=== PATIENT | female | born 1960 | race Caucasian/White ===

== ENCOUNTER 2018-03-18 21:41 | Inpatient (IN) | payer MEDICAID ==
[~2018-03-18] VITALS: Ht 167.6 cm; Wt 40.0 kg
--- NOTE | ~2018-03-18 | MORECARE ---
CASE MANAGEMENT DISCHARGE SUMMARY PATIENT: ZARINA VELAZQUEZ UNIT: [id number] ADM DATE: 03/19/18 AGE: 57 : 60 SEX: F ROOM/BED: D.6995 AUTHOR: JILLIANDOC PHYSICIAN: REFERRING PHYSICIAN: RULA SALAS MD DATE OF SERVICE: 03/24/18 Discharge Plan Patient Name: ZARINA VELAZQUEZ Facility: [facility]:[place] : 1960 Planned Disposition: Home Anticipated Discharge Date: 03/24/18 Discharge Date: 03/24/2018 Expected LOS: 5 Initial Reviewer: [email or web address] Initial Review Date: 03/24/2018 Generated: 03/24/18 6:06 pm Comments DCP- Discharge Planning Updated by [email or web address]: Malcolm Dominguez on 03/24/18 4:[address] Patient Name: ZARINA VELAZQUEZ Admission Status: ER Accout number: [id number] Admission Date: 03-19-2018 : 1960 Admission Diagnosis:SHORTNESS OF BREATH Attending: RULA SALAS Current LOS: 5 Anticipated DC Date: 03-24-2018 Planned Disposition: Home Primary Insurance: MEDICAID [place] PENDING Discharge Planning Comments: CM MET WITH PT IN ROOM TO DISCUSS DISCHARGE PLANNING AND NEEDS. PT REPORTS LIVING AT HOME INDEPENDENTLY WITH HER BOYFRIEND, ADULT SON AND DAUGHTER IN [place]. PT HAS A CANE SHE DOES NOT USE WITH NO MEDICAL EQUIPMENT PROVIDER PREFERENCE. PT HAS NO OUTSIDE SERVICES ASSISTING IN THE HOME. CM DISCUSSED AVAILABILITY OF HOME HEALTH, REHAB SERVICES AND MEDICAL EQUIPMENT. PT DENIES DISCHARGE NEEDS, REPORTS HER BOYFRIEND WILL PICK HER UP FOR DISCHARGE HOME TODAY. PT ASKED ABOUT HER MEDICAID, CM CALLED AND SPOKE TO STAR IN [employer] WHO INFORMED CM THAT IT MAY BE ANOTHER WEEK OR SO BEFORE ANY DETERMINATION IS MADE BY DEPARTMENT OF HUMAN SERVICES. CM NOTIFIED PT WHO REPORTS HAVING DOUGS CARD AND WILL CALL NEXT WEEK. PT REPORTS SHE WILL BE ELIGIBLE FOR INSURANCE IN ABOUT 30 DAYS AT HER NEW EMPLOYER, [employer], WHERE PT IS EMPLOYED A [employer] EXEC[employer]IVE. PT HAS DISCOUNT CARD FOR PRESCRIPTIONS AT [facility] AND CM REFERRED TO [facility] FOR POSSIBLE ASSISTANCE IF NEEDED FOR OBTAINING FUNDS FOR PRESCRIPTIONS WELL LISTING OF OTHER COMMUNITY RESOURCES THAT MAY ASSIST IF PT NEEDS IT. PT REPORTS SHE WILL BE ABLE TO GET HER ANTIBIOTICS AND IF UNABLE TO OBTAIN FUNDS FOR OTHER MEDICATIONS, WILL SEEK ASSISTANCE AT [facility]. PT DENIES NEEDS. IT SYSTEMS ENGINEER NURSE NOTIFIED. Die Sinker: Malcolm Dominguez Die Sinker: Malcolm Dominguez DCPIA - Discharge Planning Initial Assessment Updated by [id number]: Malcolm Dominguez on 03/24/18 5:02 pm * Is the patient Alert and Oriented? Yes * How many steps to enter\exit or inside your home? 14-0 / 0-I * PCP NONE * [facility] * Preadmission Environment Home with Family * ADLs Independent * Equipment Cane * Other Equipment NO MEDICAL EQUIPMENT PROVIDER PREFERENCE * List name and contact numbers for known caregivers / representatives who currently or will assist patient after discharge: WAGNER BANKS, BOYFRIEND, * Verbal permission to speak to the caregivers and representatives has been obtained from the patient. N/A * Community resources currently utilized None * Please name any agencies selected above. NONE * Additional services required to return to the preadmission environment? No * Can the patient safely return to the preadmission environment? Yes * Has this patient been hospitalized within the prior 30 days at any hospital? No Patient Name: ZARINA VELAZQUEZ Page [id number] at 1706 All edits/amendments must be made on the electronic document DICTATION DATE: 03/24/181705 ROLL WINDER: ROMEL 03/24/181705 RPT#: [id number] DC DATE:03/24/18 STATUS: DIS IN [facility] [address] [place] [address] END OF REPORT
[2018-03-18] MEDS ORDERED: VENTOLIN HFA18 GM INH (23:02)
[2018-03-18 23:49] LABS: HEMOGLOBIN 13.5 g/dL (12-16); MCH 31.8 pg (26.0-34.0); MCHC 33.8 g/dL (31.0-37.0); MCV 94.3 fL (80.0-100.0); MEAN PLATELET VOLUME 9.4 fL (7.4-10.4); PLATELET COUNT 418 10x3/uL (130-400); RBC 4.24 10x6/uL (4.00-5.40); RDW 13.5 % (11.5-14.5); WBC 26.3 10x3/uL (4.8-10.8)
[2018-03-19 00:02] LABS: EOSINOPHILS 1 % (0-7); LYMPHOCYTES 3 % (15-50); MONOCYTES 1 % (2-11); NEUTROPHILS 92 % (40-80); PLATELET ESTIMATE INCREASED
[2018-03-19 00:04] LABS: ALKALINE PHOSPHATASE 74 U/L (46-116); ALT (SGPT) 13 U/L (10-68); BILIRUBIN - TOTAL 0.28 mg/dL (0.2-1.3); CALC OSMOLALITY 272 mosm/kg (275-300); CALCIUM 8.6 mg/dL (8.5-10.1); CARBON DIOXIDE 22.1 mmol/L (21.0-32.0); CHLORIDE - SERUM 100 mmol/L (98-107); CREATININE - SERUM 0.8 mg/dL (0.6-1.3); GLUCOSE 135 mg/dL (74-106); POTASSIUM - SERUM 3.5 mmol/L (3.5-5.1); SODIUM 135 mmol/L (136-145); UREA NITROGEN 15 mg/dL (7-18); eGFR NON AFRICAN AMERICAN 78 mL/min (90-120)
[2018-03-19 03:26] VITALS: BMI 21.8
[2018-03-19 04:00] VITALS: BP 104/63
[2018-03-19 09:00] VITALS: BP 108/65
[2018-03-19 13:29] VITALS: BP 121/70
[2018-03-19 14:05] VITALS: Ht 167.6 cm; Wt 40.0 kg
[2018-03-19 14:05] LABS: APPEARANCE CLEAR (CLEAR); COLOR YELLOW (YELLOW); NITRITE NEGATIVE (NEGATIVE); PROTEIN NEGATIVE (NEGATIVE)
[2018-03-19 14:06] LABS: BACTERIA NONE SEEN /hpf (NONE SEEN); BILIRUBIN NEGATIVE (NEGATIVE); EPITHELIAL CELLS NSEEN /hpf (0-5); GLUCOSE 1000 mg/dL (NEGATIVE); KETONE NEGATIVE (NEGATIVE); RED CELLS - URINE NONE SEEN /hpf (0-5); UROBILINOGEN NORMAL (NORMAL); WHITE CELLS - URINE NSEEN /hpf (0-5)
[2018-03-19 16:06] VITALS: BP 120/71
[2018-03-19 20:00] VITALS: BP 111/67
[2018-03-20 00:10] VITALS: BP 135/79
[2018-03-20 04:00] VITALS: BP 104/63
[2018-03-20 06:24] LABS: CALC OSMOLALITY 281 mosm/kg (275-300); CALCIUM 8.1 mg/dL (8.5-10.1); CARBON DIOXIDE 25.8 mmol/L (21.0-32.0); CHLORIDE - SERUM 106 mmol/L (98-107); CREATININE - SERUM 0.6 mg/dL (0.6-1.3); GLUCOSE 104 mg/dL (74-106); POTASSIUM - SERUM 3.2 mmol/L (3.5-5.1); SODIUM 142 mmol/L (136-145); eGFR NON AFRICAN AMERICAN > 90 mL/min (90-120)
[2018-03-20 06:26] LABS: BASOPHILS 0.1 % (0-2); EOSINOPHILS 0.2 % (0-7); HEMATOCRIT 32.8 % (36.0-48.0); HEMOGLOBIN 10.8 g/dL (12-16); IMMATURE GRANULOCYTES 0.4 % (0-5); LYMPHOCYTES 11.5 % (15-50); MCH 31.7 pg (26.0-34.0); MCHC 32.9 g/dL (31.0-37.0); MCV 96.2 fL (80.0-100.0); MEAN PLATELET VOLUME 9.4 fL (7.4-10.4); MONOCYTES 4.1 % (2-11); NEUTROPHILS 83.7 % (40-80); PLATELET COUNT 424 10x3/uL (130-400); RBC 3.41 10x6/uL (4.00-5.40); RDW 13.8 % (11.5-14.5); WBC 23.7 10x3/uL (4.8-10.8)
[2018-03-20 06:35] LABS: UREA NITROGEN 10 mg/dL (7-18)
[2018-03-20 08:53] VITALS: BP 115/64
[2018-03-20 12:10] VITALS: BP 128/77
[2018-03-20 15:38] VITALS: BP 110/68
[2018-03-20 20:00] VITALS: BP 132/78
[2018-03-21 00:06] VITALS: BP 144/99
[2018-03-21 04:00] VITALS: BP 147/50
[2018-03-21 06:54] LABS: BASOPHILS 0 % (0-2); EOSINOPHILS 0 % (0-7); HEMATOCRIT 35.5 % (36.0-48.0); HEMOGLOBIN 11.8 g/dL (12-16); IMMATURE GRANULOCYTES 0.7 % (0-5); MCH 31.6 pg (26.0-34.0); MCHC 33.2 g/dL (31.0-37.0); MCV 94.9 fL (80.0-100.0); MEAN PLATELET VOLUME 9.9 fL (7.4-10.4); NEUTROPHILS 90.3 % (40-80); PLATELET COUNT 478 10x3/uL (130-400); RBC 3.74 10x6/uL (4.00-5.40); RDW 13.8 % (11.5-14.5)
[2018-03-21 06:56] LABS: WBC 13.7 10x3/uL (4.8-10.8)
[2018-03-21 07:01] LABS: % SATURATION 22 % (15-55); IRON 53 ug/dl (35-150); TOTAL IRON BIND CAPACITY 231 ug/dl (260-445); UNSAT IRON BIND CAPACITY 178 ug/dl (150-375)
[2018-03-21 07:21] LABS: CALC OSMOLALITY 282 mosm/kg (275-300); CALCIUM 8.6 mg/dL (8.5-10.1); CARBON DIOXIDE 25.9 mmol/L (21.0-32.0); CHLORIDE - SERUM 103 mmol/L (98-107); CREATININE - SERUM 0.5 mg/dL (0.6-1.3); FERRITIN 190 ng/mL (3-244); GLUCOSE 150 mg/dL (74-106); MAGNESIUM - SERUM 2.1 mg/dL (1.8-2.4); PHOSPHOROUS 3.5 mg/dL (2.5-4.9); POTASSIUM - SERUM 4.1 mmol/L (3.5-5.1); SODIUM 141 mmol/L (136-145); UREA NITROGEN 11 mg/dL (7-18); eGFR NON AFRICAN AMERICAN > 90 mL/min (90-120)
[2018-03-21 07:59] VITALS: BP 147/87
[2018-03-21 12:10] VITALS: BP 151/91
[2018-03-21 16:16] VITALS: BP 129/77
[2018-03-21 20:30] VITALS: BP 138/83
[2018-03-22 00:30] VITALS: BP 159/94
[2018-03-22 04:30] VITALS: BP 151/95
[2018-03-22 05:03] LABS: BASOPHILS 0.1 % (0-2); EOSINOPHILS 0 % (0-7); HEMATOCRIT 37.8 % (36.0-48.0); HEMOGLOBIN 12.7 g/dL (12-16); IMMATURE GRANULOCYTES 1.8 % (0-5); LYMPHOCYTES 7.5 % (15-50); MCH 31.8 pg (26.0-34.0); MCHC 33.6 g/dL (31.0-37.0); MCV 94.7 fL (80.0-100.0); MEAN PLATELET VOLUME 9.5 fL (7.4-10.4); MONOCYTES 4.6 % (2-11); PLATELET COUNT 486 10x3/uL (130-400); RBC 3.99 10x6/uL (4.00-5.40); RDW 13.7 % (11.5-14.5); WBC 13.4 10x3/uL (4.8-10.8)
[2018-03-22 05:27] LABS: CALC OSMOLALITY 282 mosm/kg (275-300); CALCIUM 9.3 mg/dL (8.5-10.1); CARBON DIOXIDE 28.6 mmol/L (21.0-32.0); CHLORIDE - SERUM 102 mmol/L (98-107); CREATININE - SERUM 0.5 mg/dL (0.6-1.3); GLUCOSE 141 mg/dL (74-106); POTASSIUM - SERUM 3.8 mmol/L (3.5-5.1); SODIUM 140 mmol/L (136-145); eGFR NON AFRICAN AMERICAN > 90 mL/min (90-120)
[2018-03-22 05:29] LABS: UREA NITROGEN 17 mg/dL (7-18)
[2018-03-22 07:00] VITALS: BP 150/94
[2018-03-22 11:00] VITALS: BP 143/87
[2018-03-22 15:00] VITALS: BP 132/87
[2018-03-22 20:00] VITALS: BP 136/85
[2018-03-23 06:21] LABS: BASOPHILS 0.1 % (0-2); EOSINOPHILS 0 % (0-7); HEMOGLOBIN 12.5 g/dL (12-16); IMMATURE GRANULOCYTES 2.4 % (0-5); MCH 31.3 pg (26.0-34.0); MCHC 32.9 g/dL (31.0-37.0); MCV 95.2 fL (80.0-100.0); MEAN PLATELET VOLUME 9.4 fL (7.4-10.4); MONOCYTES 7.7 % (2-11); NEUTROPHILS 77.8 % (40-80); PLATELET COUNT 477 10x3/uL (130-400); RBC 3.99 10x6/uL (4.00-5.40); RDW 13.7 % (11.5-14.5); WBC 13.1 10x3/uL (4.8-10.8)
[2018-03-23 06:39] LABS: CALC OSMOLALITY 278 mosm/kg (275-300); CALCIUM 8.9 mg/dL (8.5-10.1); CARBON DIOXIDE 30.6 mmol/L (21.0-32.0); CHLORIDE - SERUM 102 mmol/L (98-107); CREATININE - SERUM 0.5 mg/dL (0.6-1.3); GLUCOSE 124 mg/dL (74-106); POTASSIUM - SERUM 4.2 mmol/L (3.5-5.1); SODIUM 138 mmol/L (136-145); UREA NITROGEN 17 mg/dL (7-18); eGFR NON AFRICAN AMERICAN > 90 mL/min (90-120)
[2018-03-23 06:59] VITALS: BP 134/82
[2018-03-23 08:54] VITALS: BP 127/79
[2018-03-23 11:00] VITALS: BP 141/88
[2018-03-23 15:00] VITALS: BP 116/86
[2018-03-23 22:21] VITALS: BP 108/75
[2018-03-24 00:54] VITALS: BP 118/85
[2018-03-24 05:32] VITALS: BP 133/84
[2018-03-24 06:45] LABS: BASOPHILS 0.1 % (0-2); EOSINOPHILS 0 % (0-7); HEMATOCRIT 38.3 % (36.0-48.0); HEMOGLOBIN 12.6 g/dL (12-16); IMMATURE GRANULOCYTES 2.1 % (0-5); MCH 31.3 pg (26.0-34.0); MCHC 32.9 g/dL (31.0-37.0); MEAN PLATELET VOLUME 9.5 fL (7.4-10.4); NEUTROPHILS 79.8 % (40-80); PLATELET COUNT 484 10x3/uL (130-400); RBC 4.03 10x6/uL (4.00-5.40); RDW 13.7 % (11.5-14.5); WBC 14.9 10x3/uL (4.8-10.8)
[2018-03-24 06:52] LABS: CALC OSMOLALITY 279 mosm/kg (275-300); CALCIUM 8.7 mg/dL (8.5-10.1); CARBON DIOXIDE 29.6 mmol/L (21.0-32.0); CHLORIDE - SERUM 100 mmol/L (98-107); CREATININE - SERUM 0.6 mg/dL (0.6-1.3); GLUCOSE 120 mg/dL (74-106); POTASSIUM - SERUM 4.3 mmol/L (3.5-5.1); SODIUM 138 mmol/L (136-145); UREA NITROGEN 21 mg/dL (7-18); eGFR NON AFRICAN AMERICAN > 90 mL/min (90-120)
[2018-03-24 08:31] VITALS: BP 117/70
[2018-03-24] MEDS ORDERED: MUCINEX DM ER1 EAC1 PO (11:07)
[2018-03-24] MEDS ORDERED: BENZONATATE200 MG PO (11:07)
[2018-03-24] MEDS ORDERED: SINGULAIR10 MG PO (11:07)
[2018-03-24] MEDS ORDERED: FLORAJEN3 CAPS460 MG PO (11:07)
[2018-03-24] MEDS ORDERED: LEVAQUIN750 MG PO (11:08)
[2018-03-24] MEDS ORDERED: KEFLEX500 MG PO (11:08)
[2018-03-24] MEDS ORDERED: PREDNISONE10 MG PO (11:09)
[2018-03-24 12:00] VITALS: BP 115/70
[2018-03-24 20:08] LABS: IMMUNOGLOBULIN E 42 IU/mL (0-100)
== END 2018-03-24 16:34 | disposition home or self-care (01) | DRG 177 ==
LOC: D.ER 21:41 → D.M2 03-19 01:51 → D.EDHOLD 03-19 01:51 → D.M2 03-19 02:03
PROVIDERS: Family Medicine; Internal Medicine Nephrology; Internal Medicine Pulmonary Disease
DX: J15.6 Pneumonia due to other Gram-negative bacteria (principal); J96.21 Acute and chronic respiratory failure with hypoxia; J44.0 Chronic obstructive pulmonary disease with (acute) lower respiratory infection; F17.213 Nicotine dependence, cigarettes, with withdrawal; R04.2 Hemoptysis; J44.1 Chronic obstructive pulmonary disease with (acute) exacerbation; J13 Pneumonia due to Streptococcus pneumoniae; J69.0 Pneumonitis due to inhalation of food and vomit; J30.9 Allergic rhinitis, unspecified; D64.9 Anemia, unspecified; E87.6 Hypokalemia

== ENCOUNTER 2018-11-16 20:14 | Emergency (ER) | payer SELFPAY ==
[~2018-11-16] VITALS: Ht 167.6 cm; Wt 50.9 kg
[~2018-11-16 20:14] MED LIST: BENZONATATE200 MG PO; FLORAJEN3 CAPS460 MG PO; KEFLEX500 MG PO; LEVAQUIN750 MG PO; MUCINEX DM ER1 EAC1 PO; PREDNISONE10 MG PO; SINGULAIR10 MG PO; VENTOLIN HFA18 GM INH
[2018-11-16 20:27] VITALS: Ht 167.6 cm; Wt 50.9 kg
[2018-11-16 21:09] LABS: UDS - AMPHET NEGATIVE QUAL (NEGATIVE); UDS - BARB NEGATIVE QUAL (NEGATIVE); UDS - BENZO NEGATIVE QUAL (NEGATIVE); UDS - COCAINE NEGATIVE QUAL (NEGATIVE); UDS - OPIATE NEGATIVE QUAL (NEGATIVE); UDS - PCP NEGATIVE QUAL (NEGATIVE); UDS - THC NEGATIVE QUAL (NEGATIVE)
[2018-11-16 21:14] LABS: BASOPHILS 0.6 % (0-2); EOSINOPHILS 6.4 % (0-7); HEMATOCRIT 38.5 % (36.0-48.0); HEMOGLOBIN 12.6 g/dL (12-16); IMMATURE GRANULOCYTES 0.1 % (0-5); LYMPHOCYTES 33.1 % (15-50); MCH 31.1 pg (26.0-34.0); MCHC 32.7 g/dL (31.0-37.0); MCV 95.1 fL (80.0-100.0); MEAN PLATELET VOLUME 10.6 fL (7.4-10.4); MONOCYTES 7.6 % (2-11); NEUTROPHILS 52.2 % (40-80); PLATELET COUNT 273 10x3/uL (130-400); RBC 4.05 10x6/uL (4.00-5.40); RDW 13.8 % (11.5-14.5); WBC 8.4 10x3/uL (4.8-10.8)
[2018-11-16 21:27] LABS: ALBUMIN 3.5 g/dL (3.4-5.0); ALKALINE PHOSPHATASE 71 U/L (46-116); ALT (SGPT) 11 U/L (10-68); CALC OSMOLALITY 289 mosm/kg (275-300); CALCIUM 8.4 mg/dL (8.5-10.1); CARBON DIOXIDE 25.9 mmol/L (21.0-32.0); CHLORIDE - SERUM 111 mmol/L (98-107); CREATININE - SERUM 0.5 mg/dL (0.6-1.3); GLUCOSE 105 mg/dL (74-106); PROTEIN - SERUM 6.4 g/dL (6.4-8.2); SODIUM 146 mmol/L (136-145); UREA NITROGEN 9 mg/dL (7-18); eGFR NON AFRICAN AMERICAN > 90 mL/min (90-120)
[2018-11-16 21:34] LABS: C-REACTIVE PROTEIN < 0.2 mg/dL (0.0-0.9)
[2018-11-16 21:40] LABS: APPEARANCE CLEAR (CLEAR); BILIRUBIN NEGATIVE (NEGATIVE); COLOR YELLOW (YELLOW); GLUCOSE NEGATIVE (NEGATIVE); KETONE NEGATIVE (NEGATIVE); NITRITE NEGATIVE (NEGATIVE); PROTEIN NEGATIVE (NEGATIVE); UROBILINOGEN NORMAL (NORMAL)
[2018-11-16 21:42] LABS: BACTERIA FEW /hpf (NONE SEEN); RED CELLS - URINE OCC /hpf (0-5); WHITE CELLS - URINE 0-5 /hpf (0-5)
[2018-11-16] MEDS ORDERED: MIRALAX17 GM PO (23:15)
[2018-11-17] VITALS: BP 180/87
== END 2018-11-17 | disposition home or self-care (01) ==
LOC: D.ER 20:14
PROVIDERS: Family Medicine
DX: R10.31 Right lower quadrant pain (principal); K59.00 Constipation, unspecified

== ENCOUNTER 2018-12-05 22:01 | Emergency (ER) | payer SELFPAY ==
[~2018-12-05] VITALS: Ht 167.6 cm; Wt 40.0 kg
[~2018-12-05 22:01] MED LIST changes: +MIRALAX17 GM PO
[2018-12-05 22:27] VITALS: Ht 167.6 cm; Wt 40.0 kg
[2018-12-06 01:15] LABS: BASOPHILS 0.1 % (0-2); EOSINOPHILS 0.6 % (0-7); HEMATOCRIT 38.2 % (36.0-48.0); HEMOGLOBIN 12.8 g/dL (12-16); IMMATURE GRANULOCYTES 0.2 % (0-5); LYMPHOCYTES 7.2 % (15-50); MCH 30.9 pg (26.0-34.0); MCHC 33.5 g/dL (31.0-37.0); MCV 92.3 fL (80.0-100.0); MONOCYTES 7.4 % (2-11); NEUTROPHILS 84.5 % (40-80); PLATELET COUNT 300 10x3/uL (130-400); RBC 4.14 10x6/uL (4.00-5.40); RDW 13.5 % (11.5-14.5); WBC 17.6 10x3/uL (4.8-10.8)
[2018-12-06 01:42] LABS: ALBUMIN 3.5 g/dL (3.4-5.0); ALKALINE PHOSPHATASE 73 U/L (46-116); ALT (SGPT) 9 U/L (10-68); BILIRUBIN - TOTAL 0.28 mg/dL (0.2-1.3); CALC OSMOLALITY 274 mosm/kg (275-300); CALCIUM 8.4 mg/dL (8.5-10.1); CARBON DIOXIDE 25.8 mmol/L (21.0-32.0); CHLORIDE - SERUM 100 mmol/L (98-107); CREATININE - SERUM 0.6 mg/dL (0.6-1.3); GLUCOSE 114 mg/dL (74-106); POTASSIUM - SERUM 3.9 mmol/L (3.5-5.1); SODIUM 137 mmol/L (136-145); UREA NITROGEN 12 mg/dL (7-18); eGFR NON AFRICAN AMERICAN > 90 mL/min (90-120)
[2018-12-06] MEDS ORDERED: FLAGYL500 MG PO (03:04)
[2018-12-06 03:22] VITALS: BP 116/67
[2018-12-14 14:09] LABS: OVA + PARASITE EXAM Final report (())
== END 2018-12-06 03:22 | disposition home or self-care (01) ==
LOC: D.ER 22:01
PROVIDERS: Family Medicine
DX: R19.7 Diarrhea, unspecified (principal)